=== PATIENT | female | born 1955 | race Caucasian/White ===

== ENCOUNTER 2023-03-31 12:48 | Emergency (ER) | payer MEDICARE, SELFPAY ==
[2023-03-31 13:08] VITALS: BP 160/72; BP 161/67; PULSE 60; RESP 15; TEMP 36.7; O2SAT 95; O2SAT 97; BMI 29.3
--- NOTE | 2023-03-31 14:18 | PC.NURSE ---
pt aox4, comes to ED after a bout of weakness when out with . Pt was eased to floor and EMS was called. Last week , pt and report that pt's INR was above 6.0 when tested at home. Most recently, last night INR was 2.8 Pt and test INR at home. Lindsey noted on pt right AC prior to lab draw, after consulting with another RN, I proceeded with lab draw and IV insertion at that site bc right side was unavailable due to paralysis and brace on left arm. labs drawn, EKG done, filling winder on, IV inserted. will ctm
--- NOTE | 2023-03-31 14:29 | ED.WEAKNESS ---
HPI - Weakness General Chief complaint: Weakness Stated complaint: weak, BL leg spasms Time Seen by Provider: 03/31/23 14:17 Source: patient, EMS, RN notes reviewed and old records reviewed Mode of arrival: EMS History of Present Illness HPI Narrative: 68-year-old female with past medical history of GERD, rheumatic fever, sleep apnea, CVA with left-sided residual deficits, mechanical mitral valve on Coumadin, presenting to the ED with via EMS s/p near syncopal episode [employer]. Most history obtained from , states they were leaving office when patient became pale/presyncopal and nearly collapsed to ground however was lowered to ground with his assistance, denies head trauma or LOC. patient denies any symptoms including feeling lightheaded/dizzy, CP/SOB. reports similar episode a few weeks ago. Patient denies recent illness, cough, fever, abdominal pain, nausea/vomiting, decreased p.o. intake. Of no states patient's Coumadin has been supratherapeutic over the past week, highest at 7.8, was holding Coumadin, resumed at present MD Complaint: generalized weakness Related Data Allergies Allergy/AdvReac Type Severity Reaction Status Date / Time Penicillins Allergy Rash Verified 03/31/23 13:07 Review of Systems Review of Systems: Constitutional: No Fever, No Chills, No Fatigue, No Malaise ENT/Mouth: No Ear Pain, No Nasal Congestion, No Sinus Pain, No Hoarseness, No sore throat, No Rhinorrhea, No Swallowing Difficulty Eyes: No Eye Pain, No Swelling, No Redness, No Vision Changes Cardiovascular: No Chest Pain, No SOB, No Dyspnea on Exertion, No Orthopnea, No Edema, No Palpitations Respiratory: No Cough, No Sputum, No Wheezing, No Dyspnea Gastrointestinal: No Nausea, No Vomiting, No Diarrhea, No Constipation, No Abdominal pain Genitourinary: No Dysuria, No Hematuria, No Urinary Incontinence/retention, No Flank Pain Musculoskeletal: No joint pain, No Myalgias, No Joint Swelling Skin: No Skin Lesions, No rash Neuro: No Weakness, No Numbness, No Paresthesias, No Loss of Consciousness, No Dizziness, No Headache Yes all other systems are reviewed and are negative Constitutional: Constitutional: Reports as per [facility] Past Medical History Attestation statement: The following information was validated with the patient. Source: old records reviewed Medical History Acid reflux Rheumatic fever Sleep apnea Stroke Surgical History Mitral valve replaced Social History Social History Alcohol intake: never Smoked in Last 30 Days: No Use of substances other than those prescribed or required for medical reasons: No Advance Directives: Yes Advance Directives on File: No Physical Exam Vital Signs: Vital Signs: Last Vital Signs Temp 98.1 F 03/31/23 13:08 Pulse 60 03/31/23 16:47 Resp 14 03/31/23 15:30 BP 178/76 H 03/31/23 16:47 Pulse Ox 95 03/31/23 15:30 O2 Del Method Room Air 03/31/23 15:30 BMI result Body Mass Index 29.3 Const: General: cooperative, no acute distress, alert and awake Orientation/consciousness: patient oriented x3 Limitations: no limitations HEENT: Head: Yes normal to inspection and Yes atraumatic Ears: hearing grossly normal bilaterally General nose exam: Normal external nose present Face and sinus: Yes normal facial exam Throat: Yes posterior oropharynx normal Eyes: General: appearance normal, both eyes and all related structures Pupils: Equal, round and reactive pupils present EOM: EOMs intact bilaterally Neck: Neck: Yes normal visual inspection and Yes no meningeal signs Resp: Effort & Inspection: normal respiratory effort and no respiratory distress Auscultation: clear to auscultation bilaterally Cardio: Rate: regular rate Heart sounds: S1 normal heart sound present and S2 normal heart sound present GI: Inspection: Yes normal to inspection Palpation (GI): Soft to palpation, nontender, no guarding and not rigid : General: Yes no CVA tenderness Back/Spine/Pelvis: Back: no CVA tenderness Skin: Rashes: no rashes Wounds: no wounds Neuro: Other: Left-sided deficits (baseline) General: patient oriented x3, tone normal and no meningeal signs Cranial nerves: Yes Equal, round and reactive pupils present Motor exam (neuro): 5/5 motor strength present throughout Extrem: General: Yes normal to inspection Course Course Course Narrative: -1600--mild leukopenia to 4.5. INR subtherapeutic at 2.0. BUN elevated to 29 -initial troponin 6.4 > will obtain 3 hour repeat 1700--CT head/brain wo IV con IMPRESSION: No intracranial hemorrhage or definite acute intracranial process identified. There are no old studies available for comparison. There is a large region of encephalomalacia involving the right frontal and parietal lobes with evidence of previous right craniotomy. No significant mass effect is noted. XR chest 1V IMPRESSION: Bronchial wall thickening may be infectious and/or inflammatory in etiology. -1630--ED care transferred to [facility] pending repeat troponin, orthostatics, and dispo Reevaluation(s) Reevaluation #1: Repeat troponin negative, orthostatics negative. Patient is stable for discharge Time: 17:24 Medications Administered Discontinued Medications Generic Name Dose Route Start Last Admin Trade Name Freq PRN Reason Stop Dose Admin Sodium Chloride 1,000 mls @ 999 mls/hr 03/31/23 16:15 03/31/23 16:14 Ns IV 03/31/23 17:15 999 mls/hr .Q1H1M OBDULIO Administration Medical Decision Making Medical Decision Making [facility] Narrative: 68-year-old female with past medical history of GERD, rheumatic fever, sleep apnea, CVA with left-sided residual deficits, mechanical mitral valve on Coumadin, presenting to the ED with via EMS s/p near syncopal episode [employer]. patient denies any symptoms. On exam mildly hypertensive, NAD, nontoxic appearing, baseline left-sided neuro deficits from prior CVA, lungs CTA, abdomen soft/nontender. Concern for presyncope vs ACS vs metabolic/infectious etiologies vs ?CVA/ICH. Lower suspicion for PE, CHF or dissection Plan: EKG, labs, UA, CXR, orthostatics Please refer to course for remaining clinical decision making, interpretation of labs/imaging results, and discussions with consultants and/or family members. Differential Diagnosis Differential Diagnoses: The differential diagnosis associated with the presentation includes As above Admission/Observation Consideration of admission/observation: Escalation of care including admission/observation considered Lab Data [facility] Lab Attestation statement: I reviewed the patient's lab results. 03/31/23 14:11 03/31/23 14:11 Labs: Lab Results 03/31/23 03/31/23 03/31/23 Range/Units 14:11 14:11 14:11 WBC 4.5 L (4.8-10.8) X10*3/uL RBC 4.14 L (4.20-5.50) X10*6/uL Hgb 13.1 (12.0-16.0) g/dl Hct 41.0 (37.0-47.0) % MCV 99.0 H (80.0-98.0) fL MCH 31.6 (27.0-33.0) pg MCHC 32.0 (31.0-35.0) g/dl RDW 13.4 (11.0-16.0) % Plt Count 170 (160-400) X10*3/uL MPV 10.2 (9.4-12.3) fL Immature Gran % (Auto) 0.4 (0.0-0.4) % Neut % (Auto) 70.3 (45-73) % Lymph % (Auto) 13.9 L (20-40) % Jerome % (Auto) 12.8 H (2-11) % Eos % (Auto) 2.2 (0-4) % Baso % (Auto) 0.4 (0-2) % Lymph # (Auto) 0.6 L (1.2-4.9) X10*3/uL Jerome # (Auto) 0.6 (0.1-1.2) X10*3/uL Eos # (Auto) 0.1 (0.0-0.4) X10*3/uL Baso # (Auto) 0.0 (0.0-0.2) X10*3/uL Abs Immat Gran (auto) 0.02 (0.00-0.03) X10*3/uL Absolute Neuts (auto) 3.2 (2.0-8.3) x10*3/uL Absolute Nucleated RBC 0.000 (0.0-0.012) X10*3/uL Nucleated RBC % (auto) 0.0 (0.0-0.2) /100WBC PT (10.0-13.1) SEC INR (0.9-1.1) APTT (26.0-36.4) SEC Sodium 142 (135-145) mmol/L Potassium 4.3 (3.3-5.1) mmol/L Chloride 103 (96-108) mmol/L Carbon Dioxide 28 (22-29) mmol/L Anion Gap 15 (12-20) BUN 29 H (9-16) mg/dL Creatinine 0.89 (0.5-1.4) mg/dL Estim Creat Clear Calc 58.0 Estimated GFR > 60 Random Glucose 104 (60-115) mg/dL Calcium 9.8 (8.4-10.2) mg/dL Magnesium 2.2 (1.6-2.6) mg/dL Total Bilirubin 0.8 (0.0-1.0) mg/dL AST 28 (5-31) U/L ALT 17 (0-31) U/L Alkaline Phosphatase 104 (39-117) U/L Troponin I High Sens 6.4 (<3.5-17.0) ng/L Total Protein 8.0 (6.5-8.0) g/dL Albumin 4.2 (3.5-5.0) g/dL COVID-19 ([facility]) (Negative) COVID-19 Clin Com 03/31/23 03/31/23 03/31/23 Range/Units 14:11 14:11 16:35 WBC (4.8-10.8) X10*3/uL RBC (4.20-5.50) X10*6/uL Hgb (12.0-16.0) g/dl Hct (37.0-47.0) % MCV (80.0-98.0) fL MCH (27.0-33.0) pg MCHC (31.0-35.0) g/dl RDW (11.0-16.0) % Plt Count (160-400) X10*3/uL MPV (9.4-12.3) fL Immature Gran % (Auto) (0.0-0.4) % Neut % (Auto) (45-73) % Lymph % (Auto) (20-40) % Jerome % (Auto) (2-11) % Eos % (Auto) (0-4) % Baso % (Auto) (0-2) % Lymph # (Auto) (1.2-4.9) X10*3/uL Jerome # (Auto) (0.1-1.2) X10*3/uL Eos # (Auto) (0.0-0.4) X10*3/uL Baso # (Auto) (0.0-0.2) X10*3/uL Abs Immat Gran (auto) (0.00-0.03) X10*3/uL Absolute Neuts (auto) (2.0-8.3) x10*3/uL Absolute Nucleated RBC (0.0-0.012) X10*3/uL Nucleated RBC % (auto) (0.0-0.2) /100WBC PT 23.6 H (10.0-13.1) SEC INR 2.0 H (0.9-1.1) APTT 40.7 H (26.0-36.4) SEC Sodium (135-145) mmol/L Potassium (3.3-5.1) mmol/L Chloride (96-108) mmol/L Carbon Dioxide (22-29) mmol/L Anion Gap (12-20) BUN (9-16) mg/dL Creatinine (0.5-1.4) mg/dL Estim Creat Clear Calc Estimated GFR Random Glucose (60-115) mg/dL Calcium (8.4-10.2) mg/dL Magnesium (1.6-2.6) mg/dL Total Bilirubin (0.0-1.0) mg/dL AST (5-31) U/L ALT (0-31) U/L Alkaline Phosphatase (39-117) U/L Troponin I High Sens 7.0 (<3.5-17.0) ng/L Total Protein (6.5-8.0) g/dL Albumin (3.5-5.0) g/dL COVID-19 ([facility]) Negative (Negative) COVID-19 Clin Com See Note Independent Interpretation I performed an independent interpretation of an: EKG (EKG sinus rhythm with first-degree AV block at a rate of 60. Pr interval 238. Incomplete left bundle branch block. QTC 434. No STEMI) Radiology Impression Discussion of test interpretation with radiology: I have reviewed the radiologist's reading. Independent Historian Clinical information obtained from an independent historian. History obtained from or confirmed by: Spouse External Record Review External record reviewed: Inpatient record, Office record, Outpatient record, Prior outpatient labs, Prior outpatient radiology, Primary care record and Outside ED record Tests considered The following testing was considered but not selected: As above Discharge Plan Discharge Clinical Impression: Pre-syncope, Weakness Patient Disposition: Home, Self-Care Instructions: Near Syncope (ED) Additional Instructions: Your blood work and imaging studies were reassuring Please continue home medications Make sure you are staying hydrated Change positions slowly If symptoms persist, recur, you pass out, or have headache/chest pain or shortness of breath return to the ED Referrals: Cristofer Sandy MD [Primary Care Provider] -
--- NOTE | 2023-03-31 14:30 | PC.NURSE ---
pt has left sided paralyses from past stroke, no neurological deficits otherwise noted, speech clear and not slurred. Uneven smile noted but per pt and family member that is attributed to past stroke. Pt able to ambulate from stretcher to wheelchair. Pt has no complaints at this time
[2023-03-31 14:48] VITALS: BP 166/74; PULSE 60; RESP 17; O2SAT 96
[2023-03-31 15:30] VITALS: BP 151/64; PULSE 60; RESP 14; O2SAT 95
--- NOTE | 2023-03-31 15:52 | PC.NURSE ---
pt back from CT scan, son and at bedside, no complains at this time, awaiting CT results, will ctm
[2023-03-31] MEDS: 0.9 % Sodium Chloride 1,000 ML 999 ML IV (16:14)
--- NOTE | 2023-03-31 16:40 | PC.NURSE ---
trop redraw pending at lab, tech doing ortho vitals now
[2023-03-31 16:43] VITALS: BP 166/70; PULSE 58
[2023-03-31 16:45] VITALS: BP 164/85; PULSE 58
[2023-03-31 16:47] VITALS: BP 178/76; PULSE 60
== END 2023-03-31 17:46 | disposition home or self-care (01) ==
PROVIDERS: Emergency Provider Emergency Medicine Emergency Medical Services; PCP Internal Medicine
DX: R55 Syncope and collapse (principal); R53.1 Weakness; Z20.822 Contact with and (suspected) exposure to COVID-19; Z86.73 Personal history of transient ischemic attack (TIA), and cerebral infarction without residual deficits
CPT/HCPCS: 36415; 70450; 71045; 80053; 83735; 84484; 85025; 85610; 85730; 87635; 93005; 96360; 99284; 99285